=== PATIENT | female | born 1960 | race Asian ===

== ENCOUNTER 2019-06-09 13:27 | Outpatient (CLI) | payer OTHER ==
--- NOTE | 2019-06-09 15:02 | MMO ---
Bilateral MAMMO Bilat Screen [id number]. CLINICAL HISTORY: Patient is 59 years old and is seen for screening. The patient has no family history of breast cancer. The patient has no personal history of cancer. VIEWS: The views performed were: bilateral craniocaudal with tomosynthesis and bilateral mediolateral oblique with tomosynthesis. This study has been interpreted with the assistance of computer-aided detection. MAMMOGRAM FINDINGS: There are scattered fibroglandular densities. There are no suspicious masses, suspicious calcifications, or new areas of architectural distortion. IMPRESSION: THERE IS NO MAMMOGRAPHIC EVIDENCE OF MALIGNANCY. A ROUTINE FOLLOW-UP MAMMOGRAM IN 1 YEAR IS RECOMMENDED. THE RESULTS OF THIS EXAM WERE SENT TO THE PATIENT. ACR BI-RADS Category 1 - Negative MAMMOGRAPHY NOTE: 1. A negative mammogram report should not delay a biopsy if a dominant of clinically suspicious mass is present. 2. Approximately 10% to 15% of breast cancers are not detected by mammography. 3. Adenosis and dense breasts may obscure an underlying neoplasm. Reported by: KISHA CHAPMAN MD Electonically Signed: [id number]
== END 2019-06-09 13:28 | disposition home or self-care (01) ==
LOC: BICMAMMO 13:27
PROVIDERS: ATTEND Family Medicine
DX: Z12.31 Encounter for screening mammogram for malignant neoplasm of breast (principal)
CPT/HCPCS: 77063; 77067

== ENCOUNTER 2022-10-02 15:18 | Outpatient (CLI) | payer OTHER | END 2022-10-02 15:19 | disposition home or self-care (01) | LOC: BICMAMMO 15:18 | PROVIDERS: ATTEND Family Medicine | DX: Z12.31 Encounter for screening mammogram for malignant neoplasm of breast (principal) | CPT/HCPCS: 77063; 77067 ==

== ENCOUNTER 2024-04-11 03:49 | Inpatient (IN) | payer OTHER ==
[2024-04-11 04:34] LABS: #Basophils 0.03 10x3/uL (0.0-0.2); #Eosinophils 0.02 10x3/uL (0.0-0.7); #Monocytes 0.92 10x3/uL (0.11-0.59); #Neutrophils 12.82 10x3/uL (1.40-6.50); %Basophils 0.2 % (0.0-1.0); %Eosinophils 0.1 % (0.0-10.0); %Lymphocytes 11.8 % (21.0-51.0); %Monocytes 5.9 % (0.0-10.0); %Neutrophils 81.6 % (42.0-75.0); Hemoglobin 13.3 g/dL (12.0-16.0); Mean Corpuscular HGB CONC 34.1 g/dL (32.0-36.0); Mean Corpuscular Hemoglobin 31.5 pg (27.0-31.0); Mean Corpuscular Volume 92.4 fL (78.0-98.0); Mean Platelet Volume 9.6 fL (7.4-10.4); Platelet Count 255 10x3/uL (130-400); RBC Distribution Width 11.8 % (11.5-14.5); Red Blood Cell (RBC) Count 4.22 mill/uL (4.20-5.40); White Blood Cell (WBC) Count 15.71 10x3/uL (4.8-10.8)
[2024-04-11 04:36] LABS: ALT (SGPT) 45 U/L (8-55); AST (SGOT) 24 U/L (5-34); Albumin 3.9 g/dL (3.4-4.8); Alkaline Phosphatase 79 U/L (40-110); Anion Gap 15 mmol/L (10-20); BUN (Urea Nitrogen) 14 mg/dL (9.8-20.1); Bilirubin, Total 0.9 mg/dL (0.2-1.2); Calc. Creatinine Clearance 0 mL/min (70-130); Calcium 9.6 mg/dL (7.8-10.44); Carbon Dioxide 24 mmol/L (23-31); Chloride 99 mmol/L (98-107); Estimated GFR 82; Globulin 3.9 g/dL (2.4-3.5); Glucose 237 mg/dL (80-115); Potassium 4.2 mmol/L (3.5-5.1); Protein, Total 7.8 g/dL (5.8-8.1); Sodium 134 mmol/L (136-145)
[2024-04-11] MEDS ORDERED: cefTRIAXone (ROCEPHIN) 1 GM VIAL ONE (04:47)
[2024-04-11] MEDS ORDERED: Sodium Chloride 0.9% 100 ML ONE (04:47)
[2024-04-11] MEDS ORDERED: Azithromycin 500 MG VIAL ONE (05:56)
[2024-04-11 07:12] LABS: Lactic Acid 5.46 mmol/L (0.5-2.2)
[2024-04-11 07:26] LABS: Bacteria/HPF None Seen HPF (None Seen); Bilirubin Negative (Negative); Blood, Urine Negative (Negative); CAUTI Indications for Culture Dysuria,urgency,freq; Clarity Clear (Clear); Glucose, Urine (Dipstick) 300 mg/dL (Negative); Ketone, Urine Trace mg/dL (Negative); Leukocyte Negative Leu/uL (Negative); Nitrite Negative (Negative); Protein, Urine (Dipstick) Negative (Neg-Trace); RBC/HPF 0-3 HPF (0-3); Specific Gravity, Urine 1.024 (1.002-1.036); Squamous Epithelial 0-3 HPF (0-3); Urobilinogen Normal mg/dL (Less than 2); WBC/HPF 0-3 HPF (0-3); pH, Urine 6.5 (5.0-9.0)
[2024-04-11 07:27] LABS: Urine Culture Reflex No No
[2024-04-11 08:49] LABS: Troponin I Less than 0.010 ng/mL (< 0.028)
[2024-04-11] MEDS ORDERED: Ondansetron PF 4 MG/2 ML Vial IVP PRN (08:54)
[2024-04-11] MEDS ORDERED: Dextrose 50% Abboject 50 ML SYRINGE SLOW IVP PRN (08:56)
[2024-04-11] MEDS ORDERED: Polyethylene Glycol 3350 17 GM Packet PO PRN (08:56)
[2024-04-11] MEDS ORDERED: Glucagon 1 MG/ML KIT IM PRN (08:56)
[2024-04-11] MEDS ORDERED: Docusate 100 MG CAP PO PRN (08:56)
[2024-04-11] MEDS ORDERED: HumaLOG 300 UNITS/3 ML VIAL SC PRN (08:56)
[2024-04-11] MEDS ORDERED: Dextrose 5% in Water 1,000 ML IV PRN (08:56)
[2024-04-11] MEDS: Lactated Ringer's 1,000 ML IV SCH ×2 (10:43→18:02)
[2024-04-11] MEDS: Enoxaparin 40 MG (0.4 mL) SYRINGE SC SCH (10:43)
[2024-04-11] MEDS: Famotidine/PF 20 mg/2ml Vial SLOW IVP SCH (10:43)
[2024-04-11] MEDS ORDERED: Iopamidol 370 76% 100 ML VIAL ONE (11:29)
[2024-04-11] MEDS: Acetaminophen 500 MG TAB PO SCH (12:15)
[2024-04-11 13:31] LABS: Lactic Acid 3.84 mmol/L (0.5-2.2)
[2024-04-11] MEDS: Acetaminophen 325 MG TAB PO PRN (17:44)
[2024-04-11] MEDS: Ketorolac Tromethamine 30 MG (1 mL) VIAL IVP PRN (17:44)
[2024-04-12] MEDS: guaiFENesin/Codeine 200 mg/20 mg 10 ml Cup PO SCH (01:51)
[2024-04-12 04:23] LABS: Hematocrit 35.3 % (36.0-47.0); Hemoglobin 12.1 g/dL (12.0-16.0); Mean Corpuscular HGB CONC 34.3 g/dL (32.0-36.0); Mean Corpuscular Volume 90.5 fL (78.0-98.0); Mean Platelet Volume 9.7 fL (7.4-10.4); Platelet Count 195 10x3/uL (130-400); RBC Distribution Width 12.2 % (11.5-14.5)
[2024-04-12 04:50] LABS: Anion Gap 12 mmol/L (10-20); BUN (Urea Nitrogen) 8 mg/dL (9.8-20.1); Calc. Creatinine Clearance 0 mL/min (70-130); Calcium 9.1 mg/dL (7.8-10.44); Carbon Dioxide 25 mmol/L (23-31); Chloride 102 mmol/L (98-107); Estimated GFR 87; Glucose 212 mg/dL (80-115); Potassium 3.7 mmol/L (3.5-5.1); Sodium 135 mmol/L (136-145)
[2024-04-12 04:52] LABS: Lactic Acid 1.03 mmol/L (0.5-2.2)
[2024-04-12] MEDS: Azithromycin 500 MG in Sodium Chloride 0.9% 250 ML 250 ML IVPB SCH (05:44)
[2024-04-12 05:58] LABS: Band 19 % (5-11); Lymphocytes 5 % (21-51); Monocytes 3 % (0-10); Neutrophil 72 % (42-75); Platelet Adequacy Comment Platelets Normal; RBC Morphology Within Normal Limits; Reactive Lymphocytes 1 % (0-10)
[2024-04-12] MEDS: cefTRIAXone\\ROCEPHIN 1 GM in Sodium Chloride 0.9% 100 ML IVPB SCH (09:12)
[2024-04-12] MEDS: Amlodipine 10 MG TAB PO SCH (11:10)
[2024-04-12] MEDS ORDERED: Iopamidol-370 76% 500 ML MDV (1 ML CHARGE) ONE (12:36)
[2024-04-12] MEDS ORDERED: Ipratropium/Albuterol 3 ML NEB NEB PRN (13:04)
[2024-04-12] MEDS ORDERED: Dextrose 50% Abboject 50 ML SYRINGE SLOW IVP PRN (13:11)
[2024-04-12] MEDS ORDERED: Dextrose 5% in Water 1,000 ML IV PRN (13:11)
[2024-04-12] MEDS ORDERED: Glucagon 1 MG/ML KIT IM PRN (13:11)
[2024-04-12] MEDS: Insulin Glargine 30 UNITS/0.3 ML VIAL SC SCH (13:37)
[2024-04-12] MEDS: Benzonatate 100 MG CAP PO SCH (13:37)
[2024-04-12] MEDS: Insulin Lispro 100 UNIT/ML 10 ML VIAL SC PRN (16:59)
[2024-04-12] MEDS: guaiFENesin ER 600 MG TAB PO SCH (21:11)
[2024-04-12] MEDS: Zolpidem Tartrate 5 MG TAB PO SCH (22:54)
[2024-04-13 04:49] LABS: #Basophils 0.04 10x3/uL (0.0-0.2); %Basophils 0.4 % (0.0-1.0); %Eosinophils 1.2 % (0.0-10.0); %Lymphocytes 16.4 % (21.0-51.0); %Monocytes 6.9 % (0.0-10.0); %Neutrophils 74.7 % (42.0-75.0); Hematocrit 38.1 % (36.0-47.0); Hemoglobin 12.8 g/dL (12.0-16.0); Mean Corpuscular HGB CONC 33.6 g/dL (32.0-36.0); Mean Corpuscular Hemoglobin 30.8 pg (27.0-31.0); Mean Corpuscular Volume 91.8 fL (78.0-98.0); Platelet Count 183 10x3/uL (130-400); RBC Distribution Width 12.1 % (11.5-14.5); Red Blood Cell (RBC) Count 4.15 mill/uL (4.20-5.40)
[2024-04-13 05:26] LABS: Anion Gap 14 mmol/L (10-20); BUN (Urea Nitrogen) 10 mg/dL (9.8-20.1); Calc. Creatinine Clearance 0 mL/min (70-130); Calcium 9.5 mg/dL (7.8-10.44); Carbon Dioxide 26 mmol/L (23-31); Chloride 102 mmol/L (98-107); Estimated GFR 85; Glucose 139 mg/dL (80-115); Potassium 3.2 mmol/L (3.5-5.1); Sodium 139 mmol/L (136-145)
[2024-04-13] MEDS: Insulin Glargine 30 UNITS/0.3 ML VIAL SC SCH (08:16)
[2024-04-13] MEDS: Amlodipine 10 MG TAB PO SCH (08:17)
[2024-04-13] MEDS: NIFEdipine XL 30 MG ER.TAB PO SCH ×2 (10:09→10:20)
[2024-04-13] MEDS: methylPREDNISolone Sod Succ 40 MG VIAL IVP SCH (11:30)
[2024-04-13] MEDS: Potassium Chloride 20 MEQ TAB PO SCH (15:20)
[2024-04-13] MEDS: Zolpidem Tartrate 5 MG TAB PO PRN (21:41)
[2024-04-14] MEDS: guaiFENesin/Codeine 200 mg/20 mg 10 ml Cup PO PRN (05:23)
[2024-04-14 08:09] LABS: #Basophils Less than 0.03 10x3/uL (0.0-0.2); #Eosinophils Less than 0.03 10x3/uL (0.0-0.7); %Basophils 0.2 % (0.0-1.0); %Eosinophils 0.1 % (0.0-10.0); %Lymphocytes 14.8 % (21.0-51.0); %Monocytes 5.2 % (0.0-10.0); %Neutrophils 78.9 % (42.0-75.0); Hematocrit 39.2 % (36.0-47.0); Hemoglobin 13.4 g/dL (12.0-16.0); Mean Corpuscular HGB CONC 34.2 g/dL (32.0-36.0); Mean Corpuscular Hemoglobin 31.5 pg (27.0-31.0); Mean Platelet Volume 9.6 fL (7.4-10.4); Platelet Count 245 10x3/uL (130-400); RBC Distribution Width 11.8 % (11.5-14.5); Red Blood Cell (RBC) Count 4.26 mill/uL (4.20-5.40)
[2024-04-14 08:26] LABS: Anion Gap 14 mmol/L (10-20); BUN (Urea Nitrogen) 14 mg/dL (9.8-20.1); Calc. Creatinine Clearance 94 mL/min (70-130); Calcium 10.5 mg/dL (7.8-10.44); Carbon Dioxide 26 mmol/L (23-31); Chloride 100 mmol/L (98-107); Estimated GFR 91; Glucose 236 mg/dL (80-115); Potassium 4.1 mmol/L (3.5-5.1); Sodium 136 mmol/L (136-145)
[2024-04-14] MEDS: methylPREDNISolone Sod Succ 40 MG VIAL IVP SCH (09:09)
[2024-04-14] MEDS: metFORMIN 500 MG TAB PO SCH (21:12)
[2024-04-15 07:45] VITALS: BP 139/88; TEMP 97.7
== END 2024-04-15 11:38 | disposition home or self-care (01) | DRG 871 ==
LOC: ERS 03:49 → 2NO 08:37 → T4-B 04-14 16:53
PROVIDERS: ADMIT Internal Medicine; ATTEND Internal Medicine
DX: A41.9 Sepsis, unspecified organism (principal); J18.9 Pneumonia, unspecified organism; E87.20 Acidosis, unspecified; E87.1 Hypo-osmolality and hyponatremia; R65.20 Severe sepsis without septic shock; I10 Essential (primary) hypertension; E11.9 Type 2 diabetes mellitus without complications; E87.6 Hypokalemia; Z79.899 Other long term (current) drug therapy; Z79.4 Long term (current) use of insulin; Z79.84 Long term (current) use of oral hypoglycemic drugs
CPT/HCPCS: 36415; 36416; 71045; 71250; 71275; 74177; 80048; 80053; 81001; 83605; 83880; 84484; 85025; 87040; 87070; 87081; 87205; 87400; 87426; 87430; 93005; 96374; 96375; J0456; J0696; J1650; J1815; J1885; J2919; J3490; J7050; J7120; Q9967

== ENCOUNTER 2024-06-12 19:47 | Inpatient (IN) | payer OTHER ==
[2024-06-12] MEDS ORDERED: Ondansetron PF 4 MG/2 ML Vial ONE (20:16)
[2024-06-12 20:37] LABS: #Basophils 0.03 10x3/uL (0.0-0.2); %Basophils 0.3 % (0.0-1.0); %Eosinophils 3.8 % (0.0-10.0); %Lymphocytes 7.2 % (21.0-51.0); %Monocytes 4.2 % (0.0-10.0); %Neutrophils 84.3 % (42.0-75.0); Hematocrit 38.7 % (36.0-47.0); Hemoglobin 13.8 g/dL (12.0-16.0); Mean Corpuscular HGB CONC 35.7 g/dL (32.0-36.0); Mean Corpuscular Hemoglobin 31.5 pg (27.0-31.0); Mean Corpuscular Volume 88.4 fL (78.0-98.0); Mean Platelet Volume 9.4 fL (7.4-10.4); Platelet Count 242 10x3/uL (130-400); RBC Distribution Width 11.7 % (11.5-14.5); Red Blood Cell (RBC) Count 4.38 mill/uL (4.20-5.40)
[2024-06-12 20:54] LABS: ALT (SGPT) 31 U/L (8-55); AST (SGOT) 26 U/L (5-34); Albumin 4.1 g/dL (3.4-4.8); Alkaline Phosphatase 75 U/L (40-110); Anion Gap 18 mmol/L (10-20); BUN (Urea Nitrogen) 15 mg/dL (9.8-20.1); Calc. Creatinine Clearance 0 mL/min (70-130); Calcium 9.2 mg/dL (7.8-10.44); Carbon Dioxide 23 mmol/L (23-31); Chloride 89 mmol/L (98-107); Estimated GFR 98; Globulin 3.5 g/dL (2.4-3.5); Glucose 178 mg/dL (80-115); Lipase 57 U/L (8-78); Potassium 4.7 mmol/L (3.5-5.1); Protein, Total 7.6 g/dL (5.8-8.1); Sodium 125 mmol/L (136-145)
[2024-06-12] MEDS ORDERED: cloNIDine 0.1 MG TAB ONE (20:57)
[2024-06-12 20:59] LABS: Troponin I Less than 0.010 ng/mL (< 0.028)
[2024-06-12 21:21] LABS: Bacteria/HPF None Seen HPF (None Seen); Bilirubin Negative (Negative); Blood, Urine Trace (Negative); CAUTI Indications for Culture Fever or rigors; Clarity Clear (Clear); Glucose, Urine (Dipstick) Normal (Negative); Ketone, Urine 20 mg/dL (Negative); Leukocyte Negative Leu/uL (Negative); Nitrite Negative (Negative); Protein, Urine (Dipstick) 100 mg/dL (Neg-Trace); Specific Gravity, Urine 1.035 (1.002-1.036); Squamous Epithelial 0-3 HPF (0-3); WBC/HPF 0-3 HPF (0-3); pH, Urine 6.5 (5.0-9.0)
[2024-06-12 21:23] LABS: Urine Culture Reflex No No
[2024-06-12] MEDS ORDERED: Ketorolac Tromethamine 30 MG (1 mL) VIAL ONE (22:05)
[2024-06-13 00:47] LABS: Anion Gap 15 mmol/L (10-20); BUN (Urea Nitrogen) 15 mg/dL (9.8-20.1); Calc. Creatinine Clearance 0 mL/min (70-130); Calcium 8.4 mg/dL (7.8-10.44); Carbon Dioxide 21 mmol/L (23-31); Chloride 95 mmol/L (98-107); Estimated GFR 99; Glucose 135 mg/dL (80-115); Sodium 126 mmol/L (136-145)
[2024-06-13 00:52] LABS: Potassium 4.8 mmol/L (3.5-5.1)
[2024-06-13] MEDS ORDERED: Ondansetron PF 4 MG/2 ML Vial IVP PRN (02:21)
[2024-06-13] MEDS ORDERED: Glucagon 1 MG/ML KIT IM PRN (02:29)
[2024-06-13] MEDS ORDERED: Insulin Lispro 100 UNIT/ML 10 ML VIAL SC PRN ×2 (02:29)
[2024-06-13] MEDS ORDERED: Dextrose 50% Abboject 50 ML SYRINGE SLOW IVP PRN (02:29)
[2024-06-13] MEDS ORDERED: Dextrose 5% in Water 1,000 ML IV PRN (02:29)
[2024-06-13] MEDS: Acetaminophen 325 MG TAB PO PRN (02:45)
[2024-06-13] MEDS: Sodium Chloride 0.9% 1,000 ML IV SCH (02:45)
[2024-06-13] MEDS: Melatonin 3 MG TAB PO PRN (02:46)
[2024-06-13 03:02] VITALS: BMI 31.8
[2024-06-13 03:51] LABS: #Basophils Less than 0.03 10x3/uL (0.0-0.2); %Basophils 0.3 % (0.0-1.0); %Eosinophils 5.9 % (0.0-10.0); %Lymphocytes 12.8 % (21.0-51.0); %Monocytes 6.5 % (0.0-10.0); %Neutrophils 74.4 % (42.0-75.0); Hematocrit 35.4 % (36.0-47.0); Hemoglobin 12.7 g/dL (12.0-16.0); Mean Corpuscular HGB CONC 35.9 g/dL (32.0-36.0); Mean Corpuscular Hemoglobin 31.2 pg (27.0-31.0); Mean Platelet Volume 9.5 fL (7.4-10.4); Platelet Count 206 10x3/uL (130-400); RBC Distribution Width 11.6 % (11.5-14.5); Red Blood Cell (RBC) Count 4.07 mill/uL (4.20-5.40)
[2024-06-13 04:24] LABS: Anion Gap 14 mmol/L (10-20); BUN (Urea Nitrogen) 14 mg/dL (9.8-20.1); Calc. Creatinine Clearance 110 mL/min (70-130); Calcium 8.4 mg/dL (7.8-10.44); Carbon Dioxide 21 mmol/L (23-31); Chloride 95 mmol/L (98-107); Estimated GFR 101; Glucose 137 mg/dL (80-115); Potassium 3.9 mmol/L (3.5-5.1); Sodium 126 mmol/L (136-145)
[2024-06-13] MEDS: Losartan 25 MG TAB PO SCH (09:11)
[2024-06-13] MEDS: guaiFENesin/DM ER PO SCH (09:11)
[2024-06-13 11:38] VITALS: BMI 31.8
[2024-06-13] MEDS: Benzonatate 100 MG CAP PO PRN (12:49)
[2024-06-13 16:03] LABS: Anion Gap 14 mmol/L (10-20); BUN (Urea Nitrogen) 16 mg/dL (9.8-20.1); Calc. Creatinine Clearance 69 mL/min (70-130); Calcium 9.5 mg/dL (7.8-10.44); Carbon Dioxide 26 mmol/L (23-31); Chloride 95 mmol/L (98-107); Estimated GFR 65; Glucose 166 mg/dL (80-115); Potassium 4.4 mmol/L (3.5-5.1); Sodium 131 mmol/L (136-145)
[2024-06-13 17:07] VITALS: BP 137/67; TEMP 98.2
== END 2024-06-13 18:20 | disposition home or self-care (01) | DRG 641 ==
LOC: ERS 19:47 → T4-B 06-13 02:01 → OBSVTOIN 06-13 09:56
PROVIDERS: ADMIT Internal Medicine; ATTEND Internal Medicine
DX: E87.1 Hypo-osmolality and hyponatremia (principal); K52.9 Noninfective gastroenteritis and colitis, unspecified; I10 Essential (primary) hypertension; E11.9 Type 2 diabetes mellitus without complications; Z79.84 Long term (current) use of oral hypoglycemic drugs; Z79.899 Other long term (current) drug therapy; Z79.4 Long term (current) use of insulin
CPT/HCPCS: 36415; 36416; 71045; 80048; 80053; 81001; 83605; 83690; 83930; 83935; 84300; 84443; 84484; 85025; 87040; 87428; 93005; 96374; 96375; G0378; J1885; J2405; J7030